=== PATIENT | female | born 1965 | race Native Hawaiian/Other Pacific Islander ===

== ENCOUNTER 2017-03-21 14:17 | Outpatient (CLI) | payer BC | END 2017-03-21 19:18 | disposition home or self-care (01) | LOC: MAMMO 14:17 | DX: Z12.31 Encounter for screening mammogram for malignant neoplasm of breast (principal) ==

== ENCOUNTER 2017-04-20 13:27 | Outpatient (CLI) | payer BC | END 2017-04-20 19:37 | disposition home or self-care (01) | LOC: MAMMO 13:27 | DX: R92.8 Other abnormal and inconclusive findings on diagnostic imaging of breast (principal) ==

== ENCOUNTER 2018-08-28 14:02 | Outpatient (CLI) | payer BC | END 2018-08-28 23:04 | disposition home or self-care (01) | LOC: MAMMO 14:02 | DX: Z12.31 Encounter for screening mammogram for malignant neoplasm of breast (principal); N64.59 Other signs and symptoms in breast ==